=== PATIENT | male | born 1995 | race Caucasian/White ===

== ENCOUNTER 2020-04-23 00:58 | Outpatient (CLI) | payer OTHER, SELFPAY ==
[2020-04-23 18:53] LABS: SARS-CoV-2 RNA PCR Negative
== END 2020-04-23 00:59 | disposition home or self-care (01) ==
PROVIDERS: Visit Provider Orthopaedic Surgery
DX: Z01.812 Encounter for preprocedural laboratory examination (principal); Z20.828 Contact with and (suspected) exposure to other viral communicable diseases
CPT/HCPCS: 87635; C9803; U0003

== ENCOUNTER 2020-04-25 01:07 | Day surgery (SDC) | payer OTHER, SELFPAY ==
[2020-04-12 14:30] VITALS: BMI 24.1
[2020-04-25] VITALS (7 sets, daily range): BP systolic 94–128; BP diastolic 60–81; PULSE 46–93; RESP 10–18; TEMP 36.5–36.7; O2SAT 98–100
--- NOTE | 2020-04-25 07:10 | WPDANESEPPF ---
Anes - Initial Pre Proc Eval Procedure: Operation Date: 04/25/20 08:30 Proposed Procedures p Excision Left Third Intermetatarsal Neuroma, Release Second Intermetatarsal Neuroma - Oseas Colvin MD Date/Time: 04/25/20 07:10 Surgeon: Oseas Colvin MD Pre Op Diagnosis: left 2nd and 3rd toe neuroma, Patient Data Age: 24 Gender: M Height: 1.8 m Weight: 78.47 kg Allergies Allergy/AdvReac Type Severity Reaction Status Date / Time amoxicillin [From Augmentin] Allergy Unknown rash Verified 04/12/20 14:31 azithromycin Allergy Unknown rash Verified 04/12/20 14:31 clavulanic acid Allergy Unknown rash Verified 04/12/20 14:31 [From Augmentin] Home Medications Medication Instructions Recorded Confirmed Type omeprazole 20 mg tablet,delayed 20 mg PO DAILY 04/10/20 04/12/20 History release multivitamin 1 tablet PO DAILY 04/12/20 04/12/20 History Patient hx anesthesia problems: none Family hx anesthesia problems: none [facility] Past Medical History Medical History (Updated 04/10/20 @ 13:53 by Cyndie Wong, RT(R)) Charcot Marianna Tooth muscular atrophy GERD (gastroesophageal reflux disease) Goel's neuroma of left foot Surgical History Surgical History (Updated 04/10/20 @ 13:53 by Cyndie Wong, RT(R)) History of appendectomy History of repair of ACL right knee, Dr. Dipesh Padgett History of surgery OCP Lesion on L Femur, treatment OCD R Femur, OATS L Femur 2x, Lisfranc fx repair Dr. Ron Green Family History Family History (Updated 04/10/20 @ 13:53 by Cyndie Wong, RT(R)) Other Hypertension Nerve disorder Social History Social History (Updated 04/10/20 @ 13:53 by Cyndie Wong RT(R)) Smoking status: Never smoker Alcohol intake: current Drinks per week: 5 Spiritual care concerns: No Anes - Eval Final PreProcedure Day of Procedure 04/25/20 07:10 Patient weight: normal Heart: regular rate and rhythm Lungs: clear to auscultation and normal air movement Airway: Mallampati scale class II Neurological: alert and oriented Last oral intake: >/= 8 hours ASA classification: II Emergent: no Anesthetic plan: proceed Anesthesia type and monitoring: general GIVS and LMA Informed Consent: The patient's anesthetic plan and its attendant risks and benefits were discussed with the patient/family/POA. Questions were solicited and answers provided to the satisfaction of the patient/family/POA.
--- NOTE | 2020-04-25 07:17 | WPDHPUPDATE1 ---
History and Physical Update Update Date/Time: 04/25/20 07:17 History and Physical has been reviewed, including an updated exam of the patient. There are NO changes in the patient's condition. Covid test negative. Risks, benefits, and alternatives have been discussed and questions answered. Patient agrees to proceed with procedure.
[2020-04-25] MEDS: LACTATED RINGERS 1,000 ML 30 ML IV CONT (07:30)
[2020-04-25] MEDS: ACETAMINOPHEN 500 MG TABLET 1000 MG PO (07:35)
[2020-04-25] MEDS: KETOROLAC 15 MG/ML VIAL (*BKC) IV PUSH (07:35)
[2020-04-25] MEDS: ceFAZolin 2 GM/D5W 50 ML 2 GM/50 ML BAG IVPB (08:51)
--- NOTE | 2020-04-25 09:46 | PM.PROC ---
Procedure Note - Detailed Date of procedure: 04/25/20 Pre-op diagnosis: left 2nd and 3rd toe neuroma, Post-op diagnosis: same Procedure performed: Excision left foot 3rd intermetatarsal space neuroma, release left foot 2nd intermetatarsal space neuroma Description of procedure: Indications: Patient is a 24-year-old gentleman with Jnprsoy-[id number]-Ezlgu disorder. Severe left foot pain related to 3rd intermetatarsal space neuroma and 2nd intermetatarsal space neuroma. Also with foot deformity. Patient declines any surgical treatment for the deformity. He has given informed consent for the removal of the 3rd intermetatarsal space neuroma and release of the 2nd to limit the amount of disruption around the 3rd toe. What was done: Patient identified in the preoperative holding. Informed consent given. Operative extremity marked. Patient received intravenous antibiotics. Patient brought to the operating room where underwent general anesthetic by anesthesia team. Positioned supine on operating room table. Time-out performed confirming the patient, site of the surgery and the plan. Left foot prepped draped usual sterile surgical fashion using a ChloraPrep skin solution. Foot exsanguinated with an Esmarch bandage and wrapped at the ankle as a tourniquet. Third intermetatarsal space addressed 1st. A longitudinal incision made over the intermetatarsal space with a 15 blade knife. Hemostasis controlled electrocautery. Dissection carried down to the intermetatarsal ligament which was divided with skin incision. Neuroma identified branches to the 3rd and 4th toes sharply released. Neuroma was then followed proximally and was released well into the muscle. The neuroma specimen was passed off. Wound inspected and no further pathologic nerve tissue present. Wound thoroughly irrigated closed with 3 0 Monocryl interrupted suture and 4 O nylon running suture. Second intermetatarsal space then addressed. Longitudinal incision made over the space with a 15 blade knife. Hemostasis controlled electrocautery. Intermetatarsal ligament divided in line with the skin incision wound thoroughly irrigated and closed with 3 0 Monocryl interrupted suture and 4 O nylon running suture. Sterile dressing applied. The patient was then woken from anesthesia, extubated and taken to the recovery room in stable condition. All sponge, needle, instrument counts were correct at the end of the case. Anesthesia: GLMA Surgeon: Oseas Colvin MD Animal Care Taker: 1st assistant financial accountant Estimated blood loss (mL): 2 Tourniquet time (min): 45 Drains: No Packing: No Pathology: yes ( 3rd intermetatarsal space neuroma) Complications: None Condition: stable Disposition: PACU
--- NOTE | 2020-04-25 11:17 | SUR.PHASEII ---
BOOT APPLIED. PT ABLE TO BEAR WEIGHT ON LEFT FOOT.
== END 2020-04-25 11:00 | disposition home or self-care (01) ==
PROVIDERS: Visit Provider Orthopaedic Surgery
PROC: (CPT 28080; principal; 2020-04-25 08:30)
DX: G57.62 Lesion of plantar nerve, left lower limb (principal); G60.0 Hereditary motor and sensory neuropathy; K21.9 Gastro-esophageal reflux disease without esophagitis
CPT/HCPCS: 28080 ×2; 88304; A9270; J0690; J1100; J1885; J2250; J2405; J2704; J3010; J7120